=== PATIENT | male | born 1985 | race Caucasian/White ===

== ENCOUNTER 2019-08-16 21:35 | Emergency (ER) | payer SELFPAY ==
[2019-08-16] MEDS ORDERED: Sodium Chloride 0.9% 2.5 ML Syringe FLUSH PRN (21:39)
[2019-08-16] MEDS ORDERED: Sodium Chloride 0.9% 10 ML Syringe FLUSH PRN (21:39)
[2019-08-16] MEDS ORDERED: Diphtheria,Pertussis(Acell),Tetanus Vaccine 0.5 ML Syringe IM ONE (21:39)
[2019-08-16] MEDS ORDERED: Sodium Chloride 0.9% 1,000 ML IV ONE ×2 (21:43→22:11)
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
[2019-08-16] MEDS ORDERED: Propofol 200 MG/20 ML SDV IVPUSH ONE (22:10)
[2019-08-16 22:19] LABS: BLOOD UREA NITROGEN,BUN 18 mg/dL (7.0-18.0); CHLORIDE,CL 101 mmol/L (98-107); GLUCOSE RANDOM 235 mg/dL (74-106); LIPASE 96 U/L (73-393); POTASSIUM,K 2.9 mmol/L (3.5-5.1); SODIUM,NA 143 mmol/L (136-148)
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
== END 2019-08-16 22:10 ==
LOC: MW.ED 21:35
DX: T75.4XXA Electrocution, initial encounter (principal); Z23 Encounter for immunization; W85.XXXA Exposure to electric transmission lines, initial encounter; Y92.89 Other specified places as the place of occurrence of the external cause; Y99.0 Civilian activity done for income or pay
CPT/HCPCS: 31500; 36415; 71045; 72020; 72170; 80053; 81001; 82550; 82962; 83690; 84484; 85025; 85610; 90471; 90715; 93005; 96360; 99291; G0390; J2704; J7040